=== PATIENT | female | born 1950 | race Caucasian/White ===

== ENCOUNTER 2019-10-09 14:43 | Emergency (ER) | payer OTHER ==
[~2019-10-09] VITALS: Ht 154.9 cm; Wt 67.1 kg
--- NOTE | 2019-10-09 14:46 | NUR ---
BIB EMS to ER, C/O R FOOT PAIN AND LOWER ABDOMINAL PAIN, URINARY FREQUENCY. PATIENT ABLE TO WALK WITH ASSIST, HAS FRACTURE ON L FOOT , TO ER BED 11, HOOKED TO MONITOR, CHANGED TO HOSP GOWN, WARM BLANKET PROVIDED, PATIENT AAO x 4, BREATHING EVEN AND UNLABORED, AWAITING MD ESCALANTE.
--- NOTE | 2019-10-09 15:09 | NUR ---
DR PARHAM AT BEDSIDE
[2019-10-09] MEDS ORDERED: KETOROLAC TROMETHAMINE INJ 30 MG/ML VIAL ONE (15:18)
[2019-10-09] MEDS ORDERED: KETOROLAC TROMETHAMINE INJ 30 MG/ML VIAL IV ONE (15:30)
[2019-10-09] MEDS ORDERED: IV NS 0.9% 1,000 ML BAG IV ONE (15:30)
--- NOTE | 2019-10-09 15:35 | NUR ---
URINE SAMPLE COLLECTED SENT TO LAB
[2019-10-09 15:52] LABS: BASOPHILS # (AUTO) 0.1 /CMM (0.0-0.2); BASOPHILS % (AUTO) 0.6 % (0.0-2.0); HEMATOCRIT 40 % (33-45); HEMOGLOBIN 13.2 g/dL (11.5-14.8); LYMPHOCYTES # (AUTO) 2.2 /CMM (0.8-4.8); LYMPHOCYTES % (AUTO) 17.7 % (20.0-44.0); MEAN CORPUSCULAR HGB CONC 33 g/dl (31.0-36.0); MEAN CORPUSCULAR VOLUME 94 fL (82-100); MONOCYTES # (AUTO) 1.1 /CMM (0.1-1.30); MONOCYTES % (AUTO) 8.5 % (2.0-12.0); NEUTROPHILS % (AUTO) 72.2 % (43.0-81.0); PLATELET COUNT (AUTO) 333 /CMM (150-450); RED BLOOD CELL COUNT(AUTO) 4.27 MIL/uL (4.0-5.2); WHITE BLOOD COUNT (AUTO) 12.5 K/uL (4.3-11.0)
[2019-10-09 16:01] LABS: APPEARANCE,URINE Clear (CLEAR); BILIRUBIN,URINE Negative (NEGATIVE); BLOOD, URINE Trace-lysed Ery/uL (NEGATIVE); COLOR,URINE Yellow (YELLOW); KETONES,URINE Negative (NEGATIVE); LEUKOCYTE ESTERASE ,URINE Negative (NEGATIVE); NITRITE, URINE Negative (NEGATIVE); PH,URINE 7.5 (5.0-8.0); PROTEIN,URINE Negative (NEGATIVE); UGLUCOSE Negative (NEGATIVE); UROBILINOGEN,URINE 0.2 EU/dL (0.2)
[2019-10-09 16:20] LABS: BACTERIA,URINE Few /HPF (None Seen); SQUAMOUS EPITHELIAL CELL,UR Few /HPF (None Seen); WBC,URINE 0-2 /HPF (0-3)
[2019-10-09 16:28] LABS: CREATININE 0.6 mg/dL (0.6-1.3); POTASSIUM 4.3 mmol/L (3.5-5.1)
[2019-10-09 16:34] LABS: ALBUMIN 3.5 g/dL (3.4-5.0); BILIRUBIN,DIRECT 0.1 mg/dL (0.0-0.2); BILIRUBIN,TOTAL 0.4 mg/dL (0.2-1.0); TOTAL PROTEIN, SERUM 7.5 g/dL (6.4-8.2)
--- NOTE | 2019-10-09 17:37 | NUR ---
PATIENT C/O 10/10 PS AT R FLANK AREA, MADE MD AWARE.
[2019-10-09] MEDS ORDERED: MORPHINE SULFATE INJ 4 MG/ML DISP.SYRIN ONE ×2 (17:40→20:37)
--- NOTE | 2019-10-09 17:48 | NUR ---
GIFTY ECHOLS AT BEDSIDE FOR APPLICATION OF KATHRINE WRAP AT L FOOT.
[2019-10-09] MEDS ORDERED: MORPHINE SULFATE INJ 2 MG/ML DISP.SYRIN IV ONE ×2 (18:00→21:00)
--- NOTE | 2019-10-09 18:13 | NUR ---
[facility] ETA 2000
--- NOTE | 2019-10-09 19:08 | NUR ---
PATIENT IN BED AWAKE. HOOKED TO MONITOR, VSS. WILL CONTINUE TO MONITOR ACCORDINGLY.
--- NOTE | 2019-10-09 20:42 | NUR ---
[facility] IN FACILITY; PT ON [facility], NO ACUTE EVENTS, NOT IN ANY DISTRESS, -SOB. -CP. MEDS GIVEN.
[2019-10-09 21:07] VITALS: BP 134/71
== END 2019-10-09 21:07 | disposition home or self-care (01) ==
LOC: ER 14:48
DX: N13.2 Hydronephrosis with renal and ureteral calculous obstruction (principal)
CPT/HCPCS: 36415; 74176; 80048; 80076; 81001; 83690; 85025; 87086; 96361; 96374; 96375; 96376; 99285; J1885; J2270 ×2; 81000-TC

== ENCOUNTER 2020-04-20 11:20 | Emergency (ER) | payer OTHER ==
[~2020-04-20] VITALS: Ht 154.9 cm; Wt 79.8 kg
--- NOTE | 2020-04-20 11:30 | NUR ---
[id number] MECHANICAL FALL FROM STAIRS -KO, C/O PAIN ON BACK OF HEAD & BUTTOCK. -NECK/BACK. PT AAOX4, VSS. RR EVEN & UNLABORED. DENIES CP, SOB, DIZZINESS, N/V AT THIS TIME. AWAITING EVAL BY DARRION. WILL CONT TO MONITOR.
[2020-04-20] MEDS ORDERED: IBUPROFEN 600 MG TABLET ONE (12:10)
[2020-04-20] MEDS: IBUPROFEN 600 MG TABLET PO ONE (12:14)
[2020-04-20 13:39] VITALS: BP 118/70
--- NOTE | 2020-04-20 13:39 | NUR ---
Patient discharged to home in stable condition. Written and verbal after care instructions given. Patient verbalizes understanding of instruction.
== END 2020-04-20 13:40 | disposition home or self-care (01) ==
LOC: ER 11:27
DX: S30.0XXA Contusion of lower back and pelvis, initial encounter (principal); S00.83XA Contusion of other part of head, initial encounter; F31.9 Bipolar disorder, unspecified; F20.9 Schizophrenia, unspecified; W01.0XXA Fall on same level from slipping, tripping and stumbling without subsequent striking against object, initial encounter; Y93.89 Activity, other specified; Y92.89 Other specified places as the place of occurrence of the external cause; Y99.8 Other external cause status
CPT/HCPCS: 70450-TC; 72192-TC

== ENCOUNTER 2020-06-05 17:57 | Emergency (ER) | payer OTHER ==
[~2020-06-05] VITALS: Ht 154.9 cm; Wt 84.4 kg
[2020-06-05] MEDS ORDERED: HYDROMORPHONE INJ 2 MG/ML DISP.SYRIN IV ONE ×2 (18:30→20:00)
[2020-06-05] MEDS ORDERED: IV NS 0.9% 1,000 ML BAG IV ONE (18:30)
[2020-06-05] MEDS ORDERED: KETOROLAC TROMETHAMINE INJ 30 MG/ML VIAL IV ONE (18:30)
[2020-06-05] MEDS ORDERED: ONDANSETRON HCL/PF 4 MG/2 ML VIAL IVP ONE (18:30)
[2020-06-05] MEDS ORDERED: KETOROLAC TROMETHAMINE 15 MG/ML VIAL ONE (18:47)
[2020-06-05] MEDS ORDERED: ONDANSETRON HCL/PF 4 MG/2 ML VIAL ONE (18:47)
[2020-06-05] MEDS ORDERED: HYDROMORPHONE 1 MG/1 ML DISP.SYRIN ONE ×2 (18:48→19:39)
[2020-06-05 18:59] LABS: BASOPHILS # (AUTO) 0.1 /CMM (0.0-0.2); BASOPHILS % (AUTO) 1.2 % (0.0-2.0); EOSINOPHILS % (AUTO) 7.4 % (0.0-6.0); HEMATOCRIT 37 % (33-45); HEMOGLOBIN 12.1 g/dL (11.5-14.8); LYMPHOCYTES % (AUTO) 23.1 % (20.0-44.0); MEAN CORPUSCULAR HGB CONC 33 g/dl (31.0-36.0); MEAN CORPUSCULAR VOLUME 95 fL (82-100); MONOCYTES # (AUTO) 1.2 /CMM (0.1-1.30); MONOCYTES % (AUTO) 14.6 % (2.0-12.0); NEUTROPHILS # (AUTO) 4.6 /CMM (1.8-8.9); NEUTROPHILS % (AUTO) 53.7 % (43.0-81.0); PLATELET COUNT (AUTO) 357 /CMM (150-450); RED BLOOD CELL COUNT(AUTO) 3.87 MIL/uL (4.0-5.2); WHITE BLOOD COUNT (AUTO) 8.5 K/uL (4.3-11.0)
[2020-06-05 19:14] LABS: CALCIUM, SERUM 9.6 mg/dL (8.5-10.1); CREATININE 0.6 mg/dL (0.6-1.3); POTASSIUM 4.3 mmol/L (3.5-5.1)
--- NOTE | 2020-06-05 19:15 | NUR ---
Patient awake alert yelling medication Given asking for Bedfan keep patient clean and dry ,per patient wants more meds explained to patient will ask Md for meds .
[2020-06-05 19:19] LABS: ALBUMIN 3.4 g/dL (3.4-5.0); BILIRUBIN,DIRECT 0.1 mg/dL (0.0-0.2); BILIRUBIN,TOTAL 0.3 mg/dL (0.2-1.0); TOTAL PROTEIN, SERUM 7.1 g/dL (6.4-8.2)
--- NOTE | 2020-06-05 19:43 | NUR ---
PT MEDICATED, BROUGHT TO CT. PLACED ON 2L NC.
[2020-06-05 21:03] LABS: BILIRUBIN,URINE NEGATIVE (NEGATIVE); LEUKOCYTE ESTERASE ,URINE NEGATIVE (NEGATIVE); NITRITE, URINE POSITIVE (NEGATIVE); PROTEIN,URINE TRACE mg/dl (NEGATIVE); UGLUCOSE 100 MG/DL mg/dL (NEGATIVE)
[2020-06-05 21:11] LABS: COLOR,URINE ORANGE (YELLOW)
[2020-06-05 21:28] LABS: BACTERIA,URINE None seen /HPF (None Seen); RBC,URINE 0-2 /HPF (0-2); SQUAMOUS EPITHELIAL CELL,UR 0-2 /HPF (None Seen); WBC,URINE 0-2 /HPF (0-3)
--- NOTE | 2020-06-05 22:16 | NUR ---
IV removed. Catheter intact and site benign. Pressure and 4x4 applied to site. No bleeding noted.
--- NOTE | 2020-06-05 22:16 | NUR ---
Patient discharged to home in stable condition. Written and verbal after care instructions given. Patient verbalizes understanding of instruction. Pt told to follow up with urologist. vss. Pt called jeff.
--- NOTE | 2020-06-05 22:16 | NUR ---
PT PROVIDED WITH LEG BAG.
[2020-06-05 22:29] VITALS: BP 143/76
== END 2020-06-05 23:00 | disposition home or self-care (01) ==
LOC: ER 18:01
DX: N20.0 Calculus of kidney (principal); R10.2 Pelvic and perineal pain; R33.9 Retention of urine, unspecified; K57.30 Diverticulosis of large intestine without perforation or abscess without bleeding; K76.89 Other specified diseases of liver; R74.01 Elevation of levels of liver transaminase levels; K59.00 Constipation, unspecified; M48.00 Spinal stenosis, site unspecified; F31.9 Bipolar disorder, unspecified; F20.9 Schizophrenia, unspecified
CPT/HCPCS: 36415; 51702; 74176; 76770; 80048; 80076; 81001; 85025; 96361; 96374; 96375; 96376; 99285; J1170 ×2; J1885; J2405; J7030

== ENCOUNTER 2020-07-03 02:57 | Emergency (ER) | payer OTHER ==
[~2020-07-03] VITALS: Ht 154.9 cm; Wt 84.4 kg
--- NOTE | 2020-07-03 03:00 | NUR ---
pt bibra c/o rt flank pain x3days. Pt aaox4 breathing evenly and unlabored. Pt attached to monitor and pox. Pt skin, warm, dry, and intact. Md at bedside for eval. [place] and call light within reach.
--- NOTE | 2020-07-03 03:45 | NUR ---
lab at bedside
[2020-07-03 05:14] LABS: BILIRUBIN,URINE NEGATIVE (NEGATIVE); COLOR,URINE YELLOW (YELLOW); LEUKOCYTE ESTERASE ,URINE NEGATIVE (NEGATIVE); NITRITE, URINE NEGATIVE (NEGATIVE); PH,URINE 7.5 (5.0-8.0); PROTEIN,URINE NEGATIVE (NEGATIVE); UGLUCOSE NEGATIVE (NEGATIVE); UROBILINOGEN,URINE 0.2 EU/dL (0.2)
--- NOTE | 2020-07-03 06:52 | NUR ---
Patient discharged to home in stable condition. Written and verbal after care instructions given. Patient verbalizes understanding of instruction. Pt ambulatory with a steady gait
[2020-07-03 07:00] VITALS: BP 144/85
== END 2020-07-03 06:52 | disposition home or self-care (01) ==
LOC: ER 02:59
DX: R33.9 Retention of urine, unspecified (principal); F20.9 Schizophrenia, unspecified; F31.9 Bipolar disorder, unspecified

== ENCOUNTER 2020-07-03 20:25 | Emergency (ER) | payer OTHER ==
[~2020-07-03] VITALS: Ht 154.9 cm; Wt 68.9 kg
--- NOTE | 2020-07-03 20:55 | NUR ---
F/C WAS FLUSHED AND DRAINED 1200 ML OF CLEAR, YELLOW URINE
--- NOTE | 2020-07-03 21:02 | NUR ---
DR HARE AT BED SIDE
[2020-07-03 21:14] VITALS: BP 141/89
--- NOTE | 2020-07-03 21:14 | NUR ---
Patient discharged to home in stable condition. Written and verbal after care instructions given. Patient verbalizes understanding of instruction.Pt ambulatory with a steady gait
== END 2020-07-03 21:14 | disposition home or self-care (01) ==
LOC: ER 20:30
DX: T83.9XXA Unspecified complication of genitourinary prosthetic device, implant and graft, initial encounter (principal); K64.9 Unspecified hemorrhoids; F20.9 Schizophrenia, unspecified; F31.9 Bipolar disorder, unspecified; Z60.2 Problems related to living alone

== ENCOUNTER 2020-08-31 09:16 | Emergency (ER) | payer OTHER, MEDICAID ==
[~2020-08-31] VITALS: Ht 154.9 cm; Wt 70.3 kg
--- NOTE | 2020-08-31 10:01 | NUR ---
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 PAIN RATE 10/10. CONNECTED TO MONITOR WILL CONTINUE TO MONITOR.
[2020-08-31 10:07] LABS: BASOPHILS # (AUTO) 0.1 K/uL (0.0-0.2); BASOPHILS % (AUTO) 0.7 % (0.0-2.0); EOSINOPHILS % (AUTO) 0.5 % (0.0-6.0); HEMATOCRIT 32 % (33-45); HEMOGLOBIN 10.4 g/dL (11.5-14.8); LYMPHOCYTES # (AUTO) 1.2 K/uL (0.8-4.8); LYMPHOCYTES % (AUTO) 13.3 % (20.0-44.0); MEAN CORPUSCULAR HGB CONC 32 g/dl (31.0-36.0); MEAN CORPUSCULAR VOLUME 90 fL (82-100); MONOCYTES # (AUTO) 0.7 K/uL (0.1-1.30); MONOCYTES % (AUTO) 7.6 % (2.0-12.0); NEUTROPHILS # (AUTO) 6.9 K/uL (1.8-8.9); NEUTROPHILS % (AUTO) 77.9 % (43.0-81.0); PLATELET COUNT (AUTO) 234 K/uL (150-450); RED BLOOD CELL COUNT(AUTO) 3.57 MIL/uL (4.0-5.2); WHITE BLOOD COUNT (AUTO) 8.9 K/uL (4.3-11.0)
[2020-08-31 10:14] LABS: CALCIUM, SERUM 8.8 mg/dL (8.5-10.1); CREATININE 0.5 mg/dL (0.6-1.3); POTASSIUM 3.5 mmol/L (3.5-5.1)
[2020-08-31 10:20] LABS: ALBUMIN 2.8 g/dL (3.4-5.0); BILIRUBIN,DIRECT 0.1 mg/dL (0.0-0.2); BILIRUBIN,TOTAL 0.3 mg/dL (0.2-1.0); TOTAL PROTEIN, SERUM 7.2 g/dL (6.4-8.2)
[2020-08-31] MEDS ORDERED: MORPHINE SULFATE INJ 4 MG/ML DISP.SYRIN ONE (10:27)
[2020-08-31] MEDS ORDERED: MORPHINE SULFATE INJ 2 MG/ML DISP.SYRIN ONE (10:27)
[2020-08-31] MEDS ORDERED: MORPHINE SULFATE INJ 2 MG/ML DISP.SYRIN IV ONE (10:30)
--- NOTE | 2020-08-31 10:30 | NUR ---
PATIENT TAKEN TO CT
[2020-08-31] MEDS ORDERED: PREG200C59 PO (11:01)
[2020-08-31] MEDS ORDERED: GABA600T12 PO (11:01)
[2020-08-31] MEDS ORDERED: BETH50TA2 PO (11:01)
[2020-08-31] MEDS ORDERED: MORP15TA7 PO (11:01)
[2020-08-31] MEDS ORDERED: ENOX80DI9 SQ (11:01)
--- NOTE | 2020-08-31 11:18 | NUR ---
URINE COLLECTED AND SENT TO THE LAB
[2020-08-31 11:38] LABS: BILIRUBIN,URINE Negative (NEGATIVE); COLOR,URINE YELLOW (YELLOW); LEUKOCYTE ESTERASE ,URINE Negative (NEGATIVE); NITRITE, URINE Negative (NEGATIVE); PH,URINE 7.5 (5.0-8.0); PROTEIN,URINE Negative (NEGATIVE); UGLUCOSE Negative (NEGATIVE); UROBILINOGEN,URINE 0.2 EU/dL (0.2)
--- NOTE | 2020-08-31 12:00 | NUR ---
PT EYES CLOSED, EASILY AWAKEN BY VERBAL STIMULI. RR EVEN & UNLABORED. DENIES CP, SOB, DIZZINESS, N/V AT THIS TIME. WILL CONT TO MONITOR.
--- NOTE | 2020-08-31 13:00 | NUR ---
ISELA EVANS CALLED FROM [employer]. SHE WILL SET UP PEER TO PEER FOR TRANSFER.
--- NOTE | 2020-08-31 13:04 | NUR ---
NURSING SUP GAVE M/S BED 310-1.
[2020-08-31] MEDS ORDERED: MELA1TAB27 PO (13:14)
--- NOTE | 2020-08-31 13:30 | NUR ---
ISELA EVANS CALLED FROM [employer]. PT HAS BEEN ACCEPTED TO [facility] UNDER DR. BOYD. WILL CALL US BACK FOR TRANSFER INFO.
--- NOTE | 2020-08-31 14:11 | NUR ---
ISELA EVANS CALLED FROM [facility]. PER NATHAN, DR. BOYD REVIEWED CLINICALS AND PATIENT WILL NEED NEURO SURGERY. PT WAS REFERRED TO [facility] FOR TRANSFER. AWAITING ACCEPTANCE INFO AND TRANSFER INFO.
--- NOTE | 2020-08-31 14:55 | NUR ---
PT C/O LEG PAIN, DR. CROOKS AWARE.
--- NOTE | 2020-08-31 15:30 | NUR ---
ISELA EVANS CALLED FROM [id number]. PT HAS BEEN ACCEPTED UNDER THE CARE OF DR. RAMIREZ AT [facility]. CURRENTLY DR. RAMIREZ LOOKING FOR NEURO SURGEON TO ACCEPT AT [facility] TO ACCEPT PATIENT. AWAITING CALL BACK FOR TRANSFER INFO.
[2020-08-31] MEDS ORDERED: HYDROMORPHONE 1 MG/1 ML DISP.SYRIN ONE (16:37)
--- NOTE | 2020-08-31 16:46 | NUR ---
PT C/O LEG PAIN, MEDICATED PER ERMD ORDER. PT MAYRA WELL.
[2020-08-31] MEDS ORDERED: IV NS 0.9% 1,000 ML IV ONE (17:00)
[2020-08-31] MEDS ORDERED: Medication Not On Formulary EA (Gabapentin 600 MG) PO SCH (17:00)
[2020-08-31] MEDS ORDERED: PREGABALIN 200 MG PO SCH (17:00)
[2020-08-31] MEDS ORDERED: HYDROMORPHONE 1 MG/1 ML DISP.SYRIN IV ONE (17:00)
[2020-08-31] MEDS ORDERED: Medication Not On Formulary EA (Melatonin/Pyridoxine HCl (B6) (Melatonin 3 mg Tablet) 1 PO SCH (18:00)
--- NOTE | 2020-08-31 18:45 | NUR ---
TRANSFER INFO PT ACCEPTED TO [facility] UNDER THE CARE OF DR. RAMIREZ. PT WILL BE GOING TO ROOM 6120. NUMBER FOR REPORT [phone].
--- NOTE | 2020-08-31 18:56 | NUR ---
AMBULANCE INFO CALLED [facility] FOR TRANSPORT TO [facility]. ETA 75-90 MINUTES. AMBULANCE AUTH #[id number]. FROM INSURANCE.
--- NOTE | 2020-08-31 18:59 | NUR ---
[facility] PHONE NUMBERS DAY: [phone]. AFTER HOURS: [phone]
[2020-08-31] MEDS ORDERED: GABAPENTIN 300 MG CAPSULE ONE (19:35)
[2020-08-31] MEDS ORDERED: GABAPENTIN 100 MG CAPSULE PO ONE (20:00)
[2020-08-31 20:13] VITALS: BP 106/56
--- NOTE | 2020-08-31 20:30 | NUR ---
REPORT GIVEN TO [place] DRAPER AT [facility] FOR COLE. PT ENROUTE TO [facility]IA [facility]
[2020-08-31] MEDS ORDERED: ENOXAPARIN SODIUM 80 MG/0.8 ML DISP.SYRIN SQ SCH (21:00)
== END 2020-08-31 20:32 | disposition short-term general hospital (02) ==
LOC: ER 09:20
DX: M54.16 Radiculopathy, lumbar region (principal); Z98.1 Arthrodesis status; M48.061 Spinal stenosis, lumbar region without neurogenic claudication; M25.78 Osteophyte, vertebrae; Z20.822 Contact with and (suspected) exposure to COVID-19; D64.9 Anemia, unspecified; E66.9 Obesity, unspecified; Z68.29 Body mass index [BMI] 29.0-29.9, adult; F20.9 Schizophrenia, unspecified; F31.9 Bipolar disorder, unspecified; G62.9 Polyneuropathy, unspecified; Z79.899 Other long term (current) drug therapy; R26.2 Difficulty in walking, not elsewhere classified
CPT/HCPCS: 36415; 51702; 70450; 71045; 72125; 72131; 80048; 80076; 81003; 82962; 83690; 85025; 85730; 87081; 87426; 93005; 96361; 96374; 96375; 99285; C9803; J1170; J2270 ×2; J7030

== ENCOUNTER 2020-10-14 19:56 | Emergency (ER) | payer OTHER ==
[~2020-10-14] VITALS: Ht 154.9 cm; Wt 70.3 kg
[~2020-10-14 19:56] MED LIST: ENOX80DI9 SQ; GABA600T12 PO; MELA1TAB27 PO; MORP15TA7 PO; PREG200C59 PO
--- NOTE | 2020-10-14 20:15 | NUR ---
PT BIBS WITH C/O RECTAL PAIN D/T HEMORRHOIDS. PT ALERT AND ORIENTED X3. PT AMBULATORY WITH NON LABORED BREATHING.
--- NOTE | 2020-10-14 20:25 | NUR ---
Karley berg in [facility] - 10/14/20 at 2049 by JEANINE INFORMATION TECHNOLOGY TEACHER AT BEDSIDE.
[2020-10-14] MEDS ORDERED: PREG200C PO (20:46)
--- NOTE | 2020-10-14 20:55 | NUR ---
Patient discharged to home in stable condition. Written and verbal after care instructions given. Patient verbalizes understanding of instruction. RX given
[2020-10-14 20:56] VITALS: BP 140/70
== END 2020-10-14 20:57 | disposition home or self-care (01) ==
LOC: ER 19:56
DX: K62.3 Rectal prolapse (principal); G89.29 Other chronic pain; F31.9 Bipolar disorder, unspecified; F20.9 Schizophrenia, unspecified; E66.9 Obesity, unspecified; Z68.29 Body mass index [BMI] 29.0-29.9, adult; Z60.2 Problems related to living alone; Z79.899 Other long term (current) drug therapy

== ENCOUNTER 2020-11-22 20:43 | Emergency (ER) | payer OTHER ==
[~2020-11-22] VITALS: Ht 154.9 cm; Wt 72.6 kg
[~2020-11-22 20:43] MED LIST changes: +PREG200C PO
[2020-11-22 21:36] VITALS: BP 114/68
== END 2020-11-22 22:57 | disposition home or self-care (01) ==
LOC: ER 20:52
DX: Z01.818 Encounter for other preprocedural examination (principal); F31.9 Bipolar disorder, unspecified; F20.9 Schizophrenia, unspecified; Z60.2 Problems related to living alone; Z79.899 Other long term (current) drug therapy

== ENCOUNTER 2021-01-22 02:28 | Emergency (ER) | payer OTHER ==
[~2021-01-22] VITALS: Ht 154.9 cm; Wt 74.8 kg
--- NOTE | 2021-01-22 02:39 | NUR ---
BIBRA 860 FROM HOME C/O COCCYX AND R RIB PAIN S/P GLF. -LOC. PLACED IN BED 3 ON MONITOR AND PULSE OX. AWAITING ER MD FOR EVAL AND ORDERS.
[2021-01-22] MEDS ORDERED: HYDROMORPHONE 1 MG/1 ML DISP.SYRIN ONE ×2 (04:28→06:24)
[2021-01-22] MEDS ORDERED: HYDROMORPHONE 1 MG/1 ML DISP.SYRIN IV ONE (04:30)
--- NOTE | 2021-01-22 04:30 | NUR ---
0.5 MG DILAUDID ADMINISTERED IM PER MD ORDER
--- NOTE | 2021-01-22 04:37 | NUR ---
PT SLEEPING COMFORTABLY BREATHING EVEN AND UNLABORED
[2021-01-22] MEDS ORDERED: HYDROMORPHONE 1 MG/1 ML DISP.SYRIN IM ONE (06:00)
--- NOTE | 2021-01-22 06:35 | NUR ---
Patient discharged to home in stable condition. Written and verbal after care instructions given. Patient verbalizes understanding of instruction.
--- NOTE | 2021-01-22 08:27 | NUR ---
PER PT HER FRIEND WILL BE HER IN 3 HRS TO PICK HER UP.
--- NOTE | 2021-01-22 12:28 | NUR ---
PT IS CLEANED AND CHANGED. AWAITING FRIEND FOR PHARMACY TECHNOLOGY INSTRUCTOR.
[2021-01-22 12:29] VITALS: BP 120/71
--- NOTE | 2021-01-22 13:08 | NUR ---
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 states he needs 1 more hour.
--- NOTE | 2021-01-22 14:00 | NUR ---
PT FRIEND DUARTE AT BEDSIDE FOR PT BULLET LUBRICATING MACHINE OPERATOR.
--- NOTE | 2021-01-22 14:08 | NUR ---
Patient discharged to home in stable condition. Written and verbal after care instructions given. Patient verbalizes understanding of instruction.
== END 2021-01-22 14:08 | disposition home or self-care (01) ==
LOC: ER 02:32
DX: G89.29 Other chronic pain (principal); G62.9 Polyneuropathy, unspecified; F20.9 Schizophrenia, unspecified; Z60.2 Problems related to living alone; Z79.899 Other long term (current) drug therapy
CPT/HCPCS: 72220; 96372 ×2; 99285; J1170 ×2

== ENCOUNTER 2021-03-07 08:27 | Inpatient (IN) | payer BC, OTHER ==
[~2021-03-07] VITALS: Ht 154.9 cm; Wt 71.8 kg
[2021-03-07] MEDS ORDERED: MORPHINE SULFATE INJ 4 MG/ML DISP.SYRIN ONE ×2 (09:42→12:38)
[2021-03-07] MEDS ORDERED: MORPHINE SULFATE INJ 2 MG/ML DISP.SYRIN IV ONE (10:00)
[2021-03-07] MEDS ORDERED: IV NS 0.9% 1,000 ML IV ONE (10:00)
--- NOTE | 2021-03-07 10:39 | NUR ---
COVID ANTIGEN SWAB DONE AND SENT TO THE LAB
--- NOTE | 2021-03-07 10:40 | NUR ---
URINE COLLECTED AT SENT
--- NOTE | 2021-03-07 10:41 | NUR ---
X RAY AT BEDSIDE
[2021-03-07] MEDS ORDERED: Z GUARD REMEDY 4 OZ OINT TP PRN (12:30)
[2021-03-07] MEDS ORDERED: MORPHINE SULFATE SR 15 MG TABLET.SA PO PRN (12:30)
[2021-03-07] MEDS ORDERED: IV NS 0.9% 1,000 ML IV PRN (12:30)
[2021-03-07] MEDS ORDERED: ONDANSETRON HCL/PF 4 MG/2 ML VIAL IVP PRN (12:30)
[2021-03-07] MEDS ORDERED: hydrALAZINE HCL IV 20 MG VIAL IV PRN (12:30)
[2021-03-07] MEDS ORDERED: ACETAMINOPHEN 325 MG TABLET PO PRN (12:30)
[2021-03-07 12:34] LABS: BILIRUBIN,URINE NEGATIVE (NEGATIVE); LEUKOCYTE ESTERASE ,URINE LARGE (NEGATIVE); NITRITE, URINE POSITIVE (NEGATIVE); PROTEIN,URINE NEGATIVE (NEGATIVE); UGLUCOSE NEGATIVE (NEGATIVE); UROBILINOGEN,URINE 0.2 EU/dL (0.2)
[2021-03-07 12:36] LABS: COLOR,URINE STRAW (YELLOW)
[2021-03-07] MEDS ORDERED: AMIT10TA6 PO (12:36)
[2021-03-07] MEDS ORDERED: TIZA-180 PO (12:36)
[2021-03-07] MEDS ORDERED: BETH50TA2 PO (12:38)
--- NOTE | 2021-03-07 12:48 | NUR ---
ROOM 308-2
[2021-03-07 12:57] LABS: BASOPHILS # (AUTO) 0.1 K/uL (0.0-0.2); BASOPHILS % (AUTO) 0.7 % (0.0-2.0); EOSINOPHILS % (AUTO) 2.9 % (0.0-6.0); HEMATOCRIT 33 % (33-45); HEMOGLOBIN 10.8 g/dL (11.5-14.8); LYMPHOCYTES # (AUTO) 1.7 K/uL (0.8-4.8); LYMPHOCYTES % (AUTO) 23.4 % (20.0-44.0); MEAN CORPUSCULAR HGB CONC 33 g/dl (31.0-36.0); MEAN CORPUSCULAR VOLUME 90 fL (82-100); MONOCYTES # (AUTO) 0.5 K/uL (0.1-1.30); MONOCYTES % (AUTO) 7.1 % (2.0-12.0); NEUTROPHILS # (AUTO) 4.9 K/uL (1.8-8.9); NEUTROPHILS % (AUTO) 65.9 % (43.0-81.0); PLATELET COUNT (AUTO) 375 K/uL (150-450); RED BLOOD CELL COUNT(AUTO) 3.67 MIL/uL (4.0-5.2); WHITE BLOOD COUNT (AUTO) 7.4 K/uL (4.3-11.0)
[2021-03-07] MEDS: PREGABALIN 100 MG CAPSULE PO SCH ×2 (13:00→13:43)
[2021-03-07] MEDS ORDERED: MORPHINE SULFATE INJ 10 MG/ML DISP.SYRIN IV ONE (13:00)
--- NOTE | 2021-03-07 13:12 | NUR ---
report given to jesse for liudmila.
[2021-03-07 13:14] LABS: CALCIUM, SERUM 8.5 mg/dL (8.5-10.1); CREATININE 0.5 mg/dL (0.6-1.3); POTASSIUM 3.4 mmol/L (3.5-5.1)
[2021-03-07 13:15] VITALS: BP 127/63
--- NOTE | 2021-03-07 13:15 | NUR ---
MS GATE OPERATOR NOTES RECEIVED PATIENT ENDORSED BY ER NURSE LUIS F. PATIENT IS AWAKE AND A/O X4. ON ROOM AIR TOLERATING WELL. NO SOB NOTED. NOT IN DISTRESS. WITH NO COMPLAINTS OF PAIN OR DISCOMFORT AT THIS TIME. WITH IV ACCESS AT RIGHT UPPER ARM G20, PATENT AND INTACT. SKIN ASSESSMENT DONE. PHOTO TAKEN. MADE COMFORTABLE ON BED. SAFETY MEASURES IN PLACED. CALL LIGHT WITHIN REACH. BED ON LOWEST LOCKED POSITION, SIDE RAILS UP X2. WILL CONTINUE TO MONITOR.
[2021-03-07] MEDS: NITROFURANTOIN/MONOHYDRATE MACROCRYSTALS 100 MG CAPSULE PO SCH ×2 (13:43→16:20)
[2021-03-07 14:09] LABS: BACTERIA,URINE Many /HPF (None Seen); RBC,URINE 0-3 /HPF (0-2); SQUAMOUS EPITHELIAL CELL,UR Moderate /HPF (None Seen)
[2021-03-07] MEDS: MORPHINE SULFATE INJ 2 MG/ML DISP.SYRIN IV PRN (16:23)
[2021-03-07] MEDS ORDERED: CEFTRIAXONE 1 G in IV D5W 50 ML IV ONE (17:00)
[2021-03-07] MEDS: GABAPENTIN 300 MG CAPSULE PO SCH (17:08)
[2021-03-07] MEDS: ENOXAPARIN SODIUM 40 MG/0.4 ML DISP.SYRIN SQ SCH (17:09)
[2021-03-07] MEDS ORDERED: PYRIDOXINE HCL 50 MG TABLET PO SCH (18:00)
--- NOTE | 2021-03-07 18:37 | NUR ---
MS RN CLOSING NOTES PATIENT RESTING ON BED AND A/O X4. ON ROOM AIR TOLERATING WELL. NO SOB NOTED. NOT IN DISTRESS. WITH NO COMPLAINTS OF PAIN AT THIS TIME. WITH IV ACCESS AT RIGHT UPPER ARM G20 WITH IVF NS AT 75ML/HR INFUSING WELL. DUE MEDS GIVEN. PATIENT REFUSED CT ON LUMBAR SPINE. WILL FOLLOW-UP TOMORROW. SAFETY MEASURES IN PLACED. CALL LIGHT WITHIN REACH. BED ON LOWEST LOCKED POSITION, SIDE RAILS UP X2. WILL ENDORSE TO NEXT SHIFT FOR COLE.
[2021-03-07 20:00] VITALS: BP 136/77
[2021-03-07] MEDS ORDERED: NITROFURANTOIN/MONOHYDRATE MACROCRYSTALS 100 MG CAPSULE PO SCH (21:00)
[2021-03-07] MEDS: MORPHINE SULFATE SR 15 MG TABLET.SA PO SCH (21:03)
--- NOTE | 2021-03-07 21:11 | NUR ---
MS RN NOTES: PATIENT RESTLESS, IRRITATED, COMPLAINING OF GENERALIZED PAIN. MORPHINE 15MG 1TAB GIVEN PO. WILL CONTINUE TO MONITOR.
[2021-03-08] MEDS: MORPHINE SULFATE INJ 2 MG/ML DISP.SYRIN IV PRN ×2 (01:54→06:15)
--- NOTE | 2021-03-08 02:00 | NUR ---
MS RN NOTES: PATIENT DEMANDED HER IV 0.9% NS 1000ML @ 75ML/HR BE STOPPED. PATIENT WAS YELLING "I WANT IT STOPPED, I DON'T WANT IT ANYMORE". REFUSING REDIRECTION.
--- NOTE | 2021-03-08 02:10 | NUR ---
MS RN NOTES: PATIENT YELLING, CRYING, IRRITATED, COMPLAINING OF BLE PAIN. MORPHINE SULFATE 1ML ADMINISTERED VIA IV AT 0154. PATIENT CURRENTLY CALM. WILL CONTINUE TO MONITOR.
--- NOTE | 2021-03-08 05:27 | NUR ---
MS RN NOTES: MRSA BOTH NARES SWABBED AND PUT IN REFRIGERATOR FOR LAB PICK. LAB CALLED/AWARE.
--- NOTE | 2021-03-08 06:19 | NUR ---
MS RN NOTES: PATIENT YELLING, CRYING, RESTLESS, REFUSING REDIRECTION. COMPLAINING OF SEVERE PAIN. MORPHINE IV 2MG ADMINISTERED AT 0615. WILL CONTINUE TO MONITOR.
--- NOTE | 2021-03-08 06:52 | NUR ---
MS RN CLOSING NOTES: PATIENT SLEEPING INTERMITTENTLY. PATIENT REPOSITIONED. NO C/O PAIN AT THIS TIME. NO S/S OF DISTRESS. RESPIRATION EVEN AND UNLABORED WITH EQUAL RISE AND FALL OF THE CHEST. ALL PATIENT CARE NEEDS HAVE BEEN MET AT THIS TIME. WILL CONTINUE TO MONITOR AND ENDORSE TO AM SHIFT.
[2021-03-08 06:55] LABS: BASOPHILS # (AUTO) 0.1 K/uL (0.0-0.2); BASOPHILS % (AUTO) 0.8 % (0.0-2.0); EOSINOPHILS % (AUTO) 4.2 % (0.0-6.0); HEMATOCRIT 33 % (33-45); HEMOGLOBIN 11.2 g/dL (11.5-14.8); LYMPHOCYTES % (AUTO) 26.9 % (20.0-44.0); MEAN CORPUSCULAR HGB CONC 34 g/dl (31.0-36.0); MEAN CORPUSCULAR VOLUME 90 fL (82-100); MONOCYTES # (AUTO) 0.8 K/uL (0.1-1.30); NEUTROPHILS # (AUTO) 4.3 K/uL (1.8-8.9); NEUTROPHILS % (AUTO) 57.1 % (43.0-81.0); PLATELET COUNT (AUTO) 393 K/uL (150-450); RED BLOOD CELL COUNT(AUTO) 3.64 MIL/uL (4.0-5.2); WHITE BLOOD COUNT (AUTO) 7.5 K/uL (4.3-11.0)
--- NOTE | 2021-03-08 07:43 | NUR ---
MS RN OPENING NOTE Patient in bed, awake. A/O x 3-4, able to make needs known. On room air, breathing evenly and unlabored. No SOB or s/s of distress noted. Iv access on RFA #20G, intact and patent. Vital catheter in place draining to a yellow colored urine. Safety precautions in place: bed in low, locked position; siderails up x 2; call light within reach. Will continue to monitor.
--- NOTE | 2021-03-08 07:56 | NUR ---
WOUND CARE CONSULT: PT PRESENTS WITH SACRAL PRESSURE ULCER WHICH EXTENDS TO RT BUTTOCK AND LEFT BUTTOCK SCARRING, PRESENT ON ADMISSION. PT INCONTINENT OF STOOL. PT PLACES HER HAND ON HER BUTTOCKS, CRYING AND COMPLAINING OF PAIN. PEÑA CATH NOTED. PT ANGRY AND IRRITABLE AT TIMES. SURGICAL CONSULT WAS MADE TO DR FLETCHER. RECOMMENDATIONS MADE FOR SKIN PROTECTION. DISCUSSED WITH NURSING STAFF. PT DEMONSTRATES ABILITY TO ASSIST WITH TURNING AND REPOSITIONING IN BED BUT PT STATES IT IS PAINFUL. MD IN AGREEMENT WITH PLAN OF CARE. Addendum: 03/08/21 at 0759 by CAMILA SHINE WNDNU Amended: Links added.
[2021-03-08 08:00] VITALS: BP 112/57
[2021-03-08 08:06] LABS: ALBUMIN 2.7 g/dL (3.4-5.0); BILIRUBIN,TOTAL 0.2 mg/dL (0.2-1.0); CALCIUM, SERUM 8.7 mg/dL (8.5-10.1); CREATININE 0.5 mg/dL (0.6-1.3); MAGNESIUM 2.2 mg/dL (1.8-2.4); PHOSPHORUS 3.5 mg/dL (2.5-4.9); POTASSIUM 3.3 mmol/L (3.5-5.1); TOTAL PROTEIN, SERUM 7.1 g/dL (6.4-8.2)
[2021-03-08] MEDS ORDERED: POTASSIUM CHLORIDE 20 MEQ TAB.PRT.SR PO ONE (08:30)
[2021-03-08] MEDS: MORPHINE SULFATE SR 15 MG TABLET.SA PO SCH ×2 (08:51→21:00)
[2021-03-08] MEDS: NITROFURANTOIN/MONOHYDRATE MACROCRYSTALS 100 MG CAPSULE PO SCH ×2 (08:51→18:34)
[2021-03-08] MEDS: GABAPENTIN 300 MG CAPSULE PO SCH ×3 (08:51→18:34)
[2021-03-08] MEDS ORDERED: LORAZEPAM INJ 2 MG/ML VIAL IV ONE ×2 (10:30→13:30)
[2021-03-08] MEDS: LIDOCAINE 5% (PATCH) 1 EA PATCH TP SCH ×2 (15:00→15:26)
[2021-03-08] MEDS: LOPERAMIDE HCL (2 MG CAP) 2 MG CAPSULE PO PRN ×2 (15:25→23:46)
[2021-03-08] MEDS: KETOROLAC TROMETHAMINE INJ 30 MG/ML VIAL IV SCH ×2 (15:25→23:19)
[2021-03-08 16:00] VITALS: BP 107/63
--- NOTE | 2021-03-08 16:03 | NUR ---
SS consult: SS consult requested for stage 3 pressure ulcer. Pt. is a 70-year-old Cuacasian female brought in due to complaints of not being able to walk this morning due to pain. Per EMR, Pt. has a history of sacral fracture. Per EMR, Pt. comes from home [[id number] [address]; [phone]] where she lives alone at home with no caregiver. Per ALIYAH, pt. reports increasing difficulty with ambulating and taking acre of self. Upon SS consult, pt. is alert and oriented x1 (Year). Pt. appeared lethargic and drowsy. Pt. presents with a dysphoric mood and slurred speech. Per EMR[facility] Pt. was unable to adequately participate in interview since she was recently medicated. SW will follow up at a later time.
[2021-03-08] MEDS: HYDROGEL DRESSING 90 GM TUBE TP SCH (17:00)
[2021-03-08] MEDS: PYRIDOXINE HCL 50 MG TABLET PO SCH (18:35)
[2021-03-08] MEDS: METHOCARBAMOL (500MG) 500 MG TABLET PO SCH ×2 (18:35→23:19)
[2021-03-08] MEDS: ENOXAPARIN SODIUM 40 MG/0.4 ML DISP.SYRIN SQ SCH (18:35)
--- NOTE | 2021-03-08 19:29 | NUR ---
MS RN CLOSING NOTE Patient in asleep. A/O x 3. On room air, breathing evenly and unlabored. No SOB or s/s of distress noted. IV access on RFA #20G, intact and patent. Patient refused IV fluid. Vital catheter in place draining to a yellow colored urine with an output of 100 cc. Due meds given. All needs attended to. Safety precautions in place: bed in low, locked position; siderails up x 2; call light within reach. Will endorse to cnc machinist 2nd shift nurse for COLE.
[2021-03-08 20:00] VITALS: BP 114/72
[2021-03-08] MEDS ORDERED: MORPHINE SULFATE SR 15 MG TABLET.SA PO SCH (21:00)
--- NOTE | 2021-03-08 21:59 | NUR ---
RN NOTES Patient was sleeping-MS Contin 15 mg po was not given
--- NOTE | 2021-03-08 23:00 | NUR ---
RN NOTES new IV access started on the left wrist # 22
[2021-03-09] MEDS: MORPHINE SULFATE INJ 2 MG/ML DISP.SYRIN IV PRN (01:14)
[2021-03-09] MEDS: METHOCARBAMOL (500MG) 500 MG TABLET PO SCH ×3 (05:18→17:09)
[2021-03-09] MEDS: KETOROLAC TROMETHAMINE INJ 30 MG/ML VIAL IV SCH ×3 (06:30→22:41)
--- NOTE | 2021-03-09 06:44 | NUR ---
RN NOTES Sleeping but arousanle, morning care rendered, call light within reach, feliciaupx2, pt. needs attended
--- NOTE | 2021-03-09 07:56 | NUR ---
MS RN OPENING NOTE Patient in bed, asleep. A/O x 3. On room air, breathing evenly and unlabored. No SOB or s/s of distress noted. IV access on left wrist #22G, intact and patent. Vital catheter in place draining to a yellow colored urine. Safety precautions in place: bed in low, locked position; siderails up x 2; call light within reach. Will continue to monitor.
[2021-03-09] MEDS: NITROFURANTOIN/MONOHYDRATE MACROCRYSTALS 100 MG CAPSULE PO SCH ×2 (08:20→17:09)
[2021-03-09] MEDS: GABAPENTIN 300 MG CAPSULE PO SCH ×3 (08:20→17:09)
[2021-03-09] MEDS: MORPHINE SULFATE SR 15 MG TABLET.SA PO SCH ×2 (08:20→20:38)
[2021-03-09] MEDS: HYDROGEL DRESSING 90 GM TUBE TP SCH (08:35)
[2021-03-09] MEDS: LIDOCAINE 5% (PATCH) 1 EA PATCH TP SCH (15:11)
[2021-03-09 15:49] LABS: BILIRUBIN,URINE NEGATIVE (NEGATIVE); COLOR,URINE YELLOW (YELLOW); LEUKOCYTE ESTERASE ,URINE MODERATE (NEGATIVE); NITRITE, URINE NEGATIVE (NEGATIVE); PROTEIN,URINE 30 mg/dl (NEGATIVE); UGLUCOSE NEGATIVE (NEGATIVE)
[2021-03-09 16:25] LABS: BACTERIA,URINE 1+ /HPF (None Seen); RBC,URINE 0-2 /HPF (0-2); SQUAMOUS EPITHELIAL CELL,UR Few /HPF (None Seen); WBC,URINE 81-100 /HPF (0-3)
[2021-03-09] MEDS: PYRIDOXINE HCL 50 MG TABLET PO SCH (17:09)
[2021-03-09] MEDS: ENOXAPARIN SODIUM 40 MG/0.4 ML DISP.SYRIN SQ SCH (17:10)
--- NOTE | 2021-03-09 19:30 | NUR ---
MS RN OPENING NOTE RECEIVED PATIENT AWAKE IN BED. A/O X3. PT STABLE ON ROOM AIR. NO SOB OR S/S OF RESPIRATORY DISTRESS NOTED. IV ACCESS L WRIST 22 GAUGE, INTACT AND PATENT. PT REFUSING IVF AT THIS TIME. PEÑA CATHETER IN PLACE DRAINING YELLOW URINE. DRESSINGS C/D/I/. SAFETY PRECAUTIONS IN PLACE. BED IN LOWEST LOCKED POSITION, HOB ELEVATED, SIDE RAILS UP X2, AND CALL LIGHT AND TABLE WITHIN REACH. WILL CONTINUE WITH PLAN OF CARE.
--- NOTE | 2021-03-09 19:46 | NUR ---
MS RN CLOSING NOTE Patient in bed, resting comfortably. A/O x 3, able to make needs known. On room air, breathing evenly and unlabored. No SOB or s/s of distress noted. IV access on left wrist #22G, intact and patent. Vital catheter in place draining to a yellow colored urine with an output of 500cc. all needs attended to. Due meds given. Wound care done on Right and left buttock. Safety precautions maintained: bed in low, locked position; siderails up x 2; call light within reach. Will endorse to hourly shift nurse for COLE. Addendum: 03/09/21 at 1951 by LIYA ESPINO RN Addendum: Patient refusing IV fluids.
[2021-03-09 20:00] VITALS: BP 143/68
--- NOTE | 2021-03-09 20:00 | NUR ---
RN NOTE PT REFUSING IVF. EXPLAINED RISKS AND BENEFITS. PT STILL REFUSED. WILL CONTINUE TO MONITOR.
[2021-03-10] MEDS: METHOCARBAMOL (500MG) 500 MG TABLET PO SCH ×5 (00:09→23:00)
[2021-03-10] MEDS: MORPHINE SULFATE INJ 2 MG/ML DISP.SYRIN IV PRN ×3 (02:57→16:41)
--- NOTE | 2021-03-10 02:57 | NUR ---
RN NOTE PT COMPLAINED OF PAIN 10/10 IN THE SACRUM. ADMINISTERED MORPHINE 2 MG FOR SEVERE PAIN ORDERED. VSS. WILL CONTINUE TO MONITOR.
--- NOTE | 2021-03-10 06:38 | NUR ---
MS RN CLOSING NOTE PATIENT AWAKE IN BED. A/O X3. PT STABLE ON ROOM AIR. NO SOB OR S/S OF RESPIRATORY DISTRESS NOTED. IV ACCESS L WRIST 22 GAUGE, INTACT AND PATENT. PT REFUSING IVF AT THIS TIME. PEÑA CATHETER IN PLACE DRAINING 700 CC OF YELLOW URINE. DRESSINGS C/D/I/. ALL NEEDS MET AT THIS TIME. SAFETY PRECAUTIONS IN PLACE AT ALL TIMES. BED IN LOWEST LOCKED POSITION, HOB ELEVATED, SIDE RAILS UP X2, AND CALL LIGHT AND TABLE WITHIN REACH. WILL ENDORSE TO ONCOMING NURSE FOR COLE.
--- NOTE | 2021-03-10 07:30 | NUR ---
ms rn received on bed, awake,alert,oriented x4,not in any form of distress, respirations even and unlabored,no sob noted, lungs are diminish,abdomen soft,positive bowel sounds,denies pain at this time, will monitor patient.
[2021-03-10] MEDS ORDERED: ENOX40DI SQ (08:11)
[2021-03-10] MEDS ORDERED: NITR100C15 PO (08:11)
[2021-03-10] MEDS: GABAPENTIN 300 MG CAPSULE PO SCH ×3 (08:35→16:41)
[2021-03-10] MEDS: NITROFURANTOIN/MONOHYDRATE MACROCRYSTALS 100 MG CAPSULE PO SCH ×2 (08:35→16:41)
[2021-03-10] MEDS: MORPHINE SULFATE SR 15 MG TABLET.SA PO SCH ×2 (08:40→20:11)
[2021-03-10] MEDS: HYDROGEL DRESSING 90 GM TUBE TP SCH (08:42)
[2021-03-10 08:44] VITALS: BP 130/80
[2021-03-10] MEDS: KETOROLAC TROMETHAMINE INJ 30 MG/ML VIAL IV SCH (08:52)
--- NOTE | 2021-03-10 09:00 | NUR ---
ms hicks breakfast served, due meds given,tolerated well.
--- NOTE | 2021-03-10 11:20 | NUR ---
ms hicks was seen by pt w/ tolerated exercise well.
--- NOTE | 2021-03-10 12:00 | NUR ---
ms rn on bed,no distress noted.
[2021-03-10] MEDS ORDERED: SILVER NITRATE APPLICATOR 1 EA BOX TP STA (12:09)
[2021-03-10 15:45] VITALS: BP 135/67
[2021-03-10] MEDS: LIDOCAINE 5% (PATCH) 1 EA PATCH TP SCH (15:48)
[2021-03-10] MEDS: ENOXAPARIN SODIUM 40 MG/0.4 ML DISP.SYRIN SQ SCH (16:27)
[2021-03-10] MEDS: PYRIDOXINE HCL 50 MG TABLET PO SCH (16:41)
--- NOTE | 2021-03-10 18:36 | NUR ---
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
--- NOTE | 2021-03-10 20:00 | NUR ---
RN NOTE PT AWAKE/ALERT, ABLE TO VERBALIZE ALL NEEDS. PT VERBALIZES UNDERSTANDING OF DISCHARGE INSTRUCTIONS AND STATES THAT HER FRIEND, FIORELLA, WILL PICK HER UP AROUND 11PM TONIGHT. DC'D IV SITE ON L-WRIST; DC'D F/C. PT IN NO ACUTE DISTRESS. WILL CONT TO MONITOR.
--- NOTE | 2021-03-10 22:00 | NUR ---
RN NOTE PT USED BEDPAN TO VOID, NO C/O ANY DIFFICULTY URINATING.
--- NOTE | 2021-03-10 23:00 | NUR ---
RN NOTE PT STATED HER FRIEND, FIORELLA, ISN'T ANSWERING AT THIS TIME. ALSO ATTEMPTED TO CALL, NO ANSWER. WILL TRY AGAIN LATER.
--- NOTE | 2021-03-10 23:30 | NUR ---
RN NOTE STILL UNABLE TO CONTACT PT'S FRIEND AT THIS TIME.
[2021-03-11] MEDS: MORPHINE SULFATE INJ 2 MG/ML DISP.SYRIN IV PRN (00:03)
--- NOTE | 2021-03-11 00:35 | NUR ---
RN NOTE PER PT, HER FRIEND IS NOW COMING TO PICK HER UP. PT READIED FOR DC, ASSISTED TO CHANGE, PT HAS HER OWN PULL-UPS. ALL DC PAPERS GIVEN AND INSTRUCTIONS PROVIDED. PT VERBALIZED UNDERSTANDING.
--- NOTE | 2021-03-11 00:45 | NUR ---
RN NOTE PT'S FRIEND, FIORELLA GLASER, HERE TO PR INTERN PT FOR DC HOME. ASSISTED PT FROM BED TO WHEELCHAIR, PT ABLE TO STAND AND TAKE A FEW STEPS TO TRANSFER. WHEELED PT DOWN AND ASSISTED INTO CAR. PT DISCHARGED IN STABLE CONDITION.
== END 2021-03-11 00:45 | disposition home health service (06) | DRG 463 ==
LOC: ER 08:33 → MED 13:01
PROVIDERS: ADMIT Internal Medicine; ATTEND Internal Medicine
PROC: 0JB90ZZ Excision of Buttock Subcutaneous Tissue and Fascia, Open Approach (ICD-10-PCS; principal; 2021-03-08)
DX: M48.061 Spinal stenosis, lumbar region without neurogenic claudication (principal); L89.313 Pressure ulcer of right buttock, stage 3; N39.0 Urinary tract infection, site not specified; F11.20 Opioid dependence, uncomplicated; E87.6 Hypokalemia; D64.9 Anemia, unspecified; L89.152 Pressure ulcer of sacral region, stage 2; R26.89 Other abnormalities of gait and mobility; Z91.81 History of falling; F20.9 Schizophrenia, unspecified; F31.9 Bipolar disorder, unspecified; G89.4 Chronic pain syndrome; Z87.440 Personal history of urinary (tract) infections; Z98.1 Arthrodesis status
CPT/HCPCS: 36415; 71045-TC; 72148-TC; 80048-TC; 80053-TC; 81001; 83605-TC; 83735-TC; 84100-TC; 84132-TC; 85025-TC; 87081-TC; 87086-TC; 87186-TC; 93970-TC; 97110-TC; 97530-TC; A6248; A6403; C9803; G0378; J0696; J1650; J1885; J2060; J2270; J7030; J7050; J7060

== ENCOUNTER 2021-06-16 02:31 | Emergency (ER) | payer MEDICARE, OTHER ==
[~2021-06-16] VITALS: Ht 154.9 cm; Wt 67.6 kg
[~2021-06-16 02:31] MED LIST changes: +AMIT10TA6 PO; +BETH50TA2 PO; +ENOX40DI SQ; -ENOX80DI9 SQ; -MELA1TAB27 PO; +NITR100C15 PO; -PREG200C PO; -PREG200C59 PO; +TIZA-180 PO
[2021-06-16 04:13] VITALS: BP 107/72
--- NOTE | 2021-06-16 04:24 | NUR ---
BIBS. AAOX4. NOT IN RESP DISTRESS. AMBUALTORY WITH A FWW. NOT IN RESP DISTRESS. CAME IN FOR RECTAL PAIN 2ND TO PROLAPSE. NOTED PROLAPSE ABOUT 4 INCHES OUT. PAIN IS 8/10. MD AT BEDSIDE FOR EVAL.
--- NOTE | 2021-06-16 05:14 | NUR ---
Patient discharged to home in stable condition. Written and verbal after care instructions given. Patient verbalizes understanding of instruction. Pt ambulatory with a steady gait
== END 2021-06-16 05:15 | disposition home or self-care (01) ==
LOC: ER 02:38
DX: K62.3 Rectal prolapse (principal); Z86.69 Personal history of other diseases of the nervous system and sense organs; Z87.39 Personal history of other diseases of the musculoskeletal system and connective tissue; Z88.8 Allergy status to other drugs, medicaments and biological substances; Z60.2 Problems related to living alone; Z79.899 Other long term (current) drug therapy

== ENCOUNTER 2021-07-21 21:57 | Emergency (ER) | payer MEDICARE, MEDICAID ==
--- NOTE | 2021-07-21 22:30 | NUR ---
PATIENT CALLED TO TRIAGE NO ANSWER.
--- NOTE | 2021-07-21 23:00 | NUR ---
PATIENT NOT IN WAITING ROOM
== END 2021-07-21 23:30 | disposition left against medical advice (07) ==
LOC: ER 22:02
DX: Z53.21 Procedure and treatment not carried out due to patient leaving prior to being seen by health care provider (principal)

== ENCOUNTER 2022-04-29 20:09 | Inpatient (IN) | payer MEDICARE, OTHER ==
[~2022-04-29] VITALS: Ht 154.9 cm; Wt 81.3 kg
[2022-04-29] MEDS ORDERED: MORPHINE SULFATE INJ 4 MG/ML DISP.SYRIN ONE (21:10)
[2022-04-29] MEDS ORDERED: GABAPENTIN 300 MG CAPSULE ONE (21:26)
[2022-04-29] MEDS ORDERED: GABAPENTIN 100 MG CAPSULE PO ONE (21:30)
[2022-04-29] MEDS ORDERED: MORPHINE SULFATE INJ 2 MG/ML DISP.SYRIN IV ONE (21:30)
[2022-04-29] MEDS ORDERED: IV NS 0.9% 1,000 ML IV ONE (21:30)
--- NOTE | 2022-04-29 21:39 | NUR ---
PT IN BED 5 FRANTIC BREATHING IS RAPID 98% ON ROOM AIR. C/O: S/P SPINAL Sx 11/20 PAIN. ENDORSES THAT SHE DID NOT TAKE ANY PAIN MEDS PRIOR TO ARRVING TO ER. PT CONNECTED TO BED SIDE MONITOR IN LOW FLOWLERS FOR BACK COMFORT.
--- NOTE | 2022-04-29 21:40 | NUR ---
20G RAC S/L NO S/S OF INFILTRATION. LABS DRAWN AND SENT TO LAB.
[2022-04-29] MEDS ORDERED: HYDROMORPHONE 1 MG/1 ML DISP.SYRIN IV ONE (22:30)
[2022-04-29] MEDS ORDERED: HYDROMORPHONE 1 MG/1 ML DISP.SYRIN ONE (22:33)
--- NOTE | 2022-04-29 22:34 | NUR ---
COVID SWAB SENT TO LAB
[2022-04-29 22:42] LABS: BASOPHILS # (AUTO) 0.1 K/uL (0.0-0.2); BASOPHILS % (AUTO) 0.4 % (0.0-2.0); EOSINOPHILS % (AUTO) 4.4 % (0.0-6.0); HEMATOCRIT 40 % (33-45); HEMOGLOBIN 12.9 g/dL (11.5-14.8); LYMPHOCYTES # (AUTO) 2.8 K/uL (0.8-4.8); LYMPHOCYTES % (AUTO) 17.7 % (20.0-44.0); MEAN CORPUSCULAR HGB CONC 32 g/dl (31.0-36.0); MEAN CORPUSCULAR VOLUME 90 fL (82-100); MONOCYTES # (AUTO) 0.8 K/uL (0.1-1.30); MONOCYTES % (AUTO) 5.2 % (2.0-12.0); NEUTROPHILS # (AUTO) 11.6 K/uL (1.8-8.9); NEUTROPHILS % (AUTO) 72.3 % (43.0-81.0); PLATELET COUNT (AUTO) 307 K/uL (150-450); RED BLOOD CELL COUNT(AUTO) 4.42 MIL/uL (4.0-5.2); WHITE BLOOD COUNT (AUTO) 16.1 K/uL (4.3-11.0)
[2022-04-29 22:52] LABS: CREATININE 0.7 mg/dL (0.6-1.3); POTASSIUM 4.4 mmol/L (3.5-5.1)
--- NOTE | 2022-04-29 23:22 | NUR ---
handoff report given to Reva LOVELACE.
--- NOTE | 2022-04-29 23:55 | NUR ---
pt transported to 3rd floor
--- NOTE | 2022-04-30 00:10 | NUR ---
freight car cleaner [employer] notes Received Pt from [place] Bermudez. Pt is alert and orientedX4. on room air. no SOB. No S/S of distress noted. VS is stable. IV site at RAC# 20 is clean, intact and flushes well. Pt just had lumbar SX at [facility] 04/24/2022. Dressing in posterior back has blood. Dr. Palomino is aware and informed. Skin assessment is done and performed. Pt refuses skin wound pictures. Explained risks and benefits. Pt also refuses belonging checks. Witness by VAUGHN Peña. Explained risks and benefits. Reorient Pt to the room and the use of call light. Pt verbalize understanding. Safety precautions is maintained. Bed at low position, brakes locked, side rails upX2, hob elevated, bed alarm is on and call light is within reach. will continue to monitor.
[2022-04-30 00:30] VITALS: BP 112/57
[2022-04-30] MEDS ORDERED: MAGNESIUM HYDROXIDE 30 ML UDC PO PRN (00:30)
[2022-04-30] MEDS ORDERED: MORPHINE SULFATE INJ 2 MG/ML DISP.SYRIN IV PRN (00:30)
[2022-04-30] MEDS ORDERED: ACETAMINOPHEN 325 MG TABLET PO PRN (00:30)
[2022-04-30] MEDS ORDERED: ONDANSETRON HCL/PF 4 MG/2 ML VIAL IVP PRN (00:30)
[2022-04-30] MEDS: ENOXAPARIN SODIUM 40 MG/0.4 ML DISP.SYRIN SQ SCH ×2 (00:30→20:20)
[2022-04-30] MEDS ORDERED: Z GUARD REMEDY 4 OZ OINT TP PRN (00:30)
--- NOTE | 2022-04-30 00:40 | NUR ---
RN notes Informed and notify Dr. Palomino that Pt just had lumbar sx at [facility] on 04/24/2022. Pt's dressing in the back has blood. ordered to held lovenox. Charge nurse is aware and informed. will continue to monitor.
--- NOTE | 2022-04-30 00:50 | NUR ---
RN notes Pt's blood sugar 145. Pt refuses coverage. Explained risks and benefits. Pt keep refusing. Will continue to monitor.
[2022-04-30] MEDS ORDERED: DEXTROSE 50%-WATER 50 ML DISP.SYRIN IV PRN (01:00)
--- NOTE | 2022-04-30 01:20 | NUR ---
RN notes Dr. Palomino ordered to held lovenox at this time.
--- NOTE | 2022-04-30 03:01 | NUR ---
RN notes Collected UA per MD ordered.
--- NOTE | 2022-04-30 06:15 | NUR ---
RN notes Pt is complaining of back pain 10/10 on pain scale. Pt requesting pain med. administered morphine/iv/prn as ordered for pain. safety precautions is maintained. will continue to monitor.
[2022-04-30] MEDS: BLOOD SUGAR DIAGNOSTIC 1 EACH STRIP IN SCH ×4 (06:40→22:00)
[2022-04-30] MEDS: INSULIN REGULAR, HUMAN 100 UNIT/ML 3 ML VIAL SQ PRN (06:41)
--- NOTE | 2022-04-30 06:41 | NUR ---
RN notes Pt's blood sugar AC 146. Pt refuses coverage. Explained risks and benefits. Pt keep refusing. will continue to monitor.
[2022-04-30 06:45] LABS: BILIRUBIN,URINE NEGATIVE (NEGATIVE); COLOR,URINE YELLOW (YELLOW); LEUKOCYTE ESTERASE ,URINE NEGATIVE (NEGATIVE); NITRITE, URINE NEGATIVE (NEGATIVE); PH,URINE 7.5 (5.0-8.0); PROTEIN,URINE NEGATIVE (NEGATIVE); UGLUCOSE NEGATIVE (NEGATIVE)
--- NOTE | 2022-04-30 06:52 | NUR ---
RN closing notes Pt is resting in bed comfortably. Pt is alert and orientedX4. on room air. no SOB. No S/S of distress noted. VS is stable. IV site at RAC# 20 is clean, intact and SL. Purewick is inplaced and draining yellow urine. Kept Pt clean, dry and comfortable. Safety precautions is maintained. Bed at low position, brakes locked, side rails upX2, hob elevated, bed alarm is on and call light is within reach. Will endorse to am nurse for COLE.
--- NOTE | 2022-04-30 07:00 | NUR ---
RN Opening notes Received Pt asleep but arousable. Pt on room air. no SOB. No S/S of distress noted at this time. IV site at RAC# 20 is clean, intact and SL. Purewick is inplaced and draining yellow urine. Kept Pt clean, dry and comfortable. Safety precautions is maintained. Bed at low position, brakes locked, side rails upX2, hob elevated, bed alarm is on and call light is within reach. Will continue to monitor COLE.
[2022-04-30 07:58] VITALS: BP 100/50
[2022-04-30] MEDS: PANTOPRAZOLE 40 MG TABLET.DR PO SCH (08:08)
[2022-04-30 08:33] LABS: BACTERIA,URINE Rare /HPF (None Seen); RBC,URINE 0-2 /HPF (0-2); SQUAMOUS EPITHELIAL CELL,UR Few /HPF (None Seen); WBC,URINE 0-2 /HPF (0-3)
--- NOTE | 2022-04-30 09:33 | NUR ---
WOUND CARE CONSULT: PT PRESENTS WITH LEFT KNEE SKIN TEAR WELL MULTIPLE DRESSINGS/STERI STRIP TAPES INCLUDING LEFT WAIST AREA, LOWER BUTTOCKS AND LUMBAR DRESSING, PRESENT ON ADMISSION. LUMBAR DRESSING HAS PINK/RED SHADOW FROM DRAINAGE, PRESENT ON ADMISSION. RECOMMEND SURGICAL FOLLOW UP. RECOMMEND REINFORCE DRESSING NEEDED. PT ANGRY AND IRRITABLE AT TIMES, CURSING AT TIMES. DISCUSSED SKIN PROTECTION WITH NURSING STAFF. MD IN AGREEMENT WITH PLAN OF CARE. Addendum: 04/30/22 at 0939 by CAMILA SHINE WNDNU PT ALSO NOTED TO HAVE SCARRING TO SACRAL AREA/BILATERAL BUTTOCKS.
[2022-04-30] MEDS: MORPHINE SULFATE INJ 2 MG/ML DISP.SYRIN IV PRN ×3 (10:24→20:29)
--- NOTE | 2022-04-30 11:49 | NUR ---
PATIENT REFUSED GLUCOSE ASSESSMENT THRU ACCU CHECK
[2022-04-30 16:00] VITALS: BP 94/54
--- NOTE | 2022-04-30 17:02 | NUR ---
Patient refused regular insulin shot for blood sugar reading of 177
--- NOTE | 2022-04-30 19:25 | NUR ---
RN closing notes Pt is resting in bed comfortably. Pt is alert and orientedX4. on room air. no SOB. No S/S of distress noted. IV site at RAC# 20 SL C/D/I. Pt in Purewick and draining yellow urine. Kept Pt clean, dry and comfortable. Safety precautions is maintained. Bed at low position, brakes locked, side rails upX2, hob elevated, bed alarm is on and call light is within reach. Will be endorse to night time babysitter nurse for COLE.
--- NOTE | 2022-04-30 19:45 | NUR ---
TELERN RECEIVED FULLY AWAKE, STARTED TO CRY, STATED SHE IS IN TOO MUCH BACK PAIN INCLUDING HER FEET. PAIN MGT DISCUSSED WITH PATIENT APPEARS TO UNDERSTAND, AT THIS TIME. REFUSED TO BE REPOSITIONED. STATED EVEN BEDSHEETS HURTS HER FEET. TRIED TO MAKE PATIENT COMFORTABLE STATED WILL CALL IF PAIN UNBEARABLE. CALL LIGHT WITHIN REACH. TO CONTINUE
[2022-04-30 20:00] VITALS: BP 108/66
--- NOTE | 2022-04-30 20:30 | NUR ---
MAHENDRA SCREAMING IN PAIN MORPHINE 2 MG IVP ADMINISTERED SLOWLY. STATED HURTS WHEN FLUSH BUT MORPHINE DOES NOT. OFFERED NEED TO RE-START ANOTHER LINE REFUSED,, DOES NOT WANT TO BE RESTARTED.
[2022-04-30] MEDS: GABAPENTIN 300 MG CAPSULE PO SCH (21:55)
[2022-04-30] MEDS: TIZANIDINE HCL 4 MG TABLET PO SCH (21:55)
[2022-04-30] MEDS: AMITRIPTYLINE HCL 10 MG TABLET PO SCH (21:55)
--- NOTE | 2022-04-30 22:00 | NUR ---
TELERN REFUSED ACCUCHECK, STATED WILL TELL MD TO HAVE A PATCH INSTEAD. OTHER DUE MEDS ADMINISTERED. MED RECON DONE RELAYED TO DR. BELTRAN. ORDERS RECEIVED
--- NOTE | 2022-04-30 22:35 | NUR ---
TELERN OXY IR 5 MG PO GIVEN FOR BREAKTHROUGH PRN. REMINDED TIME FRAME OF HER PAIN MED.
[2022-04-30] MEDS: oxyCODONE IR immediate release 5 MG PO PRN (22:45)
--- NOTE | 2022-04-30 22:45 | NUR ---
TELERN RESISTIVE TO CARE, REFUSED TO BE CHANGED. AGREED ONLY TO BE REPOSITIONED. BACK SUPPORTED WITH PILLOWS
[2022-05-01] MEDS: MORPHINE SULFATE INJ 2 MG/ML DISP.SYRIN IV PRN ×4 (00:41→16:03)
--- NOTE | 2022-05-01 05:54 | NUR ---
TELERN AGREED TO BE CHANGED 30 MINS POST MORPHINE IV ,REPOSITIONED, KEPT DRY CLEAN AND COMFORTABLE.HAD LARGE BM. PUREWICK CHANGED WAS LEAKING EARLIER.
--- NOTE | 2022-05-01 05:56 | NUR ---
TELERN REFUSED AGAIN ACCUCHECKS.
[2022-05-01] MEDS: BLOOD SUGAR DIAGNOSTIC 1 EACH STRIP IN SCH ×4 (07:01→22:00)
--- NOTE | 2022-05-01 07:02 | NUR ---
TELERN STILL REFUSED ACCUCHECKS.
[2022-05-01 08:00] VITALS: BP 90/46
--- NOTE | 2022-05-01 08:17 | NUR ---
MS RN OPENING NOTE Patient in bed, asleep. A/O x 4. On room air, no SOB or s/s of distress noted. IV access on RAC #20 SL, intact and patent. Purewick in place draining to an rudy colored urine. Safety precautions in place: bed in low, locked position; siderails up x 2; call light within reach. Will continue to monitor.
[2022-05-01] MEDS: BETHANECHOL CHLORIDE (25 MG) 25 MG TABLET PO SCH ×3 (08:20→17:25)
[2022-05-01] MEDS: PANTOPRAZOLE 40 MG TABLET.DR PO SCH (08:20)
[2022-05-01] MEDS: GABAPENTIN 300 MG CAPSULE PO SCH ×3 (08:20→17:25)
[2022-05-01] MEDS: TIZANIDINE HCL 4 MG TABLET PO SCH ×2 (09:55→17:25)
--- NOTE | 2022-05-01 12:05 | NUR ---
RN NOTE Patient's blood glucose is 178. Refused Insulin coverage. Explained the benefits and risks, patient still refused. Patient states "I don't want to be poked again".
[2022-05-01 13:09] LABS: BASOPHILS # (AUTO) 0.1 K/uL (0.0-0.2); EOSINOPHILS % (AUTO) 6.9 % (0.0-6.0); HEMATOCRIT 32 % (33-45); HEMOGLOBIN 10.6 g/dL (11.5-14.8); LYMPHOCYTES # (AUTO) 1.7 K/uL (0.8-4.8); MEAN CORPUSCULAR HGB CONC 33 g/dl (31.0-36.0); MEAN CORPUSCULAR VOLUME 92 fL (82-100); MONOCYTES # (AUTO) 0.8 K/uL (0.1-1.30); MONOCYTES % (AUTO) 7.5 % (2.0-12.0); NEUTROPHILS # (AUTO) 7.7 K/uL (1.8-8.9); NEUTROPHILS % (AUTO) 69.6 % (43.0-81.0); PLATELET COUNT (AUTO) 144 K/uL (150-450); WHITE BLOOD COUNT (AUTO) 11.1 K/uL (4.3-11.0)
[2022-05-01 13:12] LABS: CALCIUM, SERUM 7.8 mg/dL (8.5-10.1); CREATININE 0.5 mg/dL (0.6-1.3); PHOSPHORUS 3.3 mg/dL (2.5-4.9); POTASSIUM 4.3 mmol/L (3.5-5.1)
[2022-05-01] MEDS ORDERED: LUBI24CA5 PO (17:24)
[2022-05-01] MEDS ORDERED: OXYC10TA49 PO (17:24)
[2022-05-01] MEDS ORDERED: ALEN70TA80 PO (17:24)
[2022-05-01] MEDS ORDERED: TAMS-12 PO (17:24)
[2022-05-01] MEDS ORDERED: OMEP40CA21 PO (17:24)
[2022-05-01] MEDS ORDERED: DULO60CA64 PO (17:24)
[2022-05-01] MEDS ORDERED: BACL10TA PO (17:24)
[2022-05-01] MEDS ORDERED: HYDR2TAB7 PO (17:24)
[2022-05-01] MEDS ORDERED: CYCL10TA9 PO (17:24)
[2022-05-01] MEDS ORDERED: META-25 PO (17:24)
[2022-05-01] MEDS ORDERED: DIPH1TAB28 PO (17:24)
[2022-05-01] MEDS ORDERED: OXYC5TAB3 PO (17:24)
--- NOTE | 2022-05-01 19:45 | NUR ---
MS RN CLOSING NOTE Patient in bed, resting. A/O x 4, able to make needs known. Stable on room air, no SOB or s/s of distress noted. IV access on RAC #20 SL, intact and patent. Purewick in place draining to an rudy colored urine with an output of 400 cc. Due meds given. All needs attended to. Photos taken of incision on back, wound care consult requested. Safety precautions in place: bed in low, locked position; siderails up x 2; call light within reach. Will endorse to night custodian nurse for [facility].
[2022-05-01 20:00] VITALS: BP_SYST 107; BP_SYST 80; BP_DIAS 48; BP_DIAS 77
--- NOTE | 2022-05-01 20:11 | NUR ---
MS RN OPENING NOTE PATIENT SLEEPING IN BED, EASILY AWAKENED, PT ALERT/ORIENTED X 4, PT ABLE TO MAKE NEEDS KNOWN. PATIENT STABLE ON RA, NO S/S OF DISTRESS OR SOB NOTED, BREATHING EVEN AND UNLABORED. IV ACCESS ON RAC #20G INTACT AND SALINE LOCKED. PUREWICK IN PLACE AND DRAINING BETHEL URINE. SAFETY MEASURES IN PLACE :CALL LIGHT WITHIN REACH, SIDE RAILS UP X 2, BED LOCKED IN LOWEST POSITION, HOB ELEVATED, BED ALARM ON. WILL CONTINUE TO MONITOR PATIENT
--- NOTE | 2022-05-01 20:25 | NUR ---
RN NOTE REASSESSED PATIENT'S BP, PATIENT'S BP RUNS ON LOW SIDE, PATIENT'S BP NOW 92/57, HR: 65. WILL CONTINUE TO MONITOR PATIENT
[2022-05-01 20:30] VITALS: BP 92/57
[2022-05-01] MEDS: oxyCODONE IR immediate release 5 MG PO PRN (21:07)
[2022-05-01] MEDS: ENOXAPARIN SODIUM 40 MG/0.4 ML DISP.SYRIN SQ SCH (21:11)
--- NOTE | 2022-05-01 21:17 | NUR ---
MS RN NOTE PATIENT CRYING AND MOANING AND C/O OF 9/10 FOOT PAIN. OXY IR GIVEN ORDERED. WILL CONTINUE TO MONITOR PATIENT
--- NOTE | 2022-05-01 21:58 | NUR ---
MS RN NOTE PATIENT CRYING, YELLING IN PAIN, C/O OF UNBEARABLE BILATERAL FEET NEUROPATHY PAIN. PATIENT WANTS MORE PAIN MEDICATION DESPITE OXY IR 5 MG GIVEN RECENTLY. PATIENT HAS ORDER FOR MORPHINE 2 MG IV HOWEVER BP RUNNING LOW. CONTACT INFORMATION CLERK BROKERAGE MD SHANE WAN, PER DOC GIVE ONE TIME DOSE OF GABAPENTIN 300 MG PO NOW, WELL ANOTHER ONE TIME DOSE OF OXY IR 5 MG NOW. ALSO CHANGE GABAPENTIN 300 MG TID TO GABAPENTIN 600 MG TID STARTING TOMORROW AT 9 AM. ORDERS VERIFIED AND CARRIED OUT
[2022-05-01] MEDS ORDERED: GABAPENTIN 300 MG CAPSULE PO ONE (22:00)
[2022-05-01] MEDS ORDERED: oxyCODONE IR immediate release 5 MG PO ONE (22:00)
--- NOTE | 2022-05-01 22:18 | NUR ---
MS RN NOTE PATIENT REFUSED HS ACCU CHECK, STATES "I DON'T WANT TO BE POKED". RISKS AND BENEFITS EXPLAINED TO PATIENT, PT STILL REFUSED
[2022-05-01] MEDS: AMITRIPTYLINE HCL 10 MG TABLET PO SCH (23:14)
[2022-05-02 01:30] VITALS: BP 148/65
[2022-05-02] MEDS: MORPHINE SULFATE INJ 2 MG/ML DISP.SYRIN IV PRN ×2 (01:40→07:54)
--- NOTE | 2022-05-02 01:51 | NUR ---
MS RN NOTE PATIENT CRYING AND C/O LEG/FOOT PAIN. VITAL SIGNS WNL. MORPHINE 2 MG IV GIVEN ORDERED. WILL CONTINUE TO MONITOR PATIENT
[2022-05-02] MEDS: oxyCODONE IR immediate release 5 MG PO PRN ×2 (04:53→11:50)
--- NOTE | 2022-05-02 04:55 | NUR ---
MS RN NOTE PATIENT C/O OF 8/10 BILATERAL FOOT AND LEG PAIN, OXY IR 5 MG PO GIVEN ORDERED. WILL CONTINUE TO MONITOR PATIENT
--- NOTE | 2022-05-02 06:47 | NUR ---
MS RN CLOSING NOTE PATIENT AWAKE IN BED, PT ALERT/ORIENTED X 4, PT ABLE TO MAKE NEEDS KNOWN. PATIENT STABLE ON RA, NO S/S OF DISTRESS OR SOB NOTED, BREATHING EVEN AND UNLABORED. IV ACCESS ON RAC #20G INTACT AND SALINE LOCKED. MEDICATIONS GIVEN ORDERED, PT NEEDS MET THROUGHOUT SHIFT. PUREWICK IN PLACE AND DRAINING BETHEL URINE, 900 ML BETHEL URINE OUTPUT, PUREWICK CHANGED THIS AM. PATIENT REFUSED ACCU CHECKS THIS SHIFT, STATED SHE DOESN'T "WANT TO BE POKED". SAFETY MEASURES IN PLACE: CALL LIGHT WITHIN REACH, SIDE RAILS UP X 2, BED LOCKED IN LOWEST POSITION, HOB ELEVATED, BED ALARM ON. WILL ENDORSE TO DAYSHIFT RN FOR CONTINUITY OF CARE
[2022-05-02] MEDS: BLOOD SUGAR DIAGNOSTIC 1 EACH STRIP IN SCH ×2 (06:57→11:47)
--- NOTE | 2022-05-02 07:02 | NUR ---
MS RN OPENING NOTES RECEIVED PATIENT SLEEPING IN BED, A/Ox4 ABLE TO MAKE NEEDS KNOWN. ON ROOM AIR, NO S/S OF RESPIRATORY DISTRESS. IV ACCESS R AC #20 S/L, INTACT AND PATENT. INCONTINENT USES DIAPER, HAS PUREWICK DRAINING BETHEL URINE. ON BEDREST. NO S/S OF PAIN OR DISCOMFORT. SKIN ISSUES: L KNEE SKIN TEAR, BACK SX INCISION, R BUTTOCK SCARRING. DRESSINGS INTACT. SAFETY MEASURES IN PLACE: BED LOCKED AND IN LOWEST POSITION, HOB ELEVATED, BED ALARM ON, SIDE RAILS UPx2, CALL LIGHT WITHIN REACH. WILL CONTINUE TO MONITOR.
[2022-05-02] MEDS: PANTOPRAZOLE 40 MG TABLET.DR PO SCH (07:55)
[2022-05-02 08:00] VITALS: BP 99/62
--- NOTE | 2022-05-02 08:30 | NUR ---
RN NOTES PATIENT COMPLAINING ABOUT PAIN 9/10 OF FEET AND BACK. YELLING AND CRYING OUT IN PAIN. PRN MORPHINE ADMINISTERED. WILL CONTINUE TO MONITOR.
[2022-05-02] MEDS: BETHANECHOL CHLORIDE (25 MG) 25 MG TABLET PO SCH ×2 (08:42→13:13)
[2022-05-02] MEDS: GABAPENTIN 300 MG CAPSULE PO SCH ×2 (08:42→13:13)
[2022-05-02] MEDS: TIZANIDINE HCL 4 MG TABLET PO SCH (08:43)
[2022-05-02] MEDS ORDERED: GLUCERNA SHAKE 237 ML CAN PO SCH (09:00)
[2022-05-02] MEDS: INSULIN REGULAR, HUMAN 100 UNIT/ML 3 ML VIAL SQ PRN (11:49)
--- NOTE | 2022-05-02 13:00 | NUR ---
RN NOTES PATIENT COMPLAINED OF PAIN, PRN PERCOCET ADMINISTERED. WILL CONTINUE TO MONITOR
[2022-05-02] MEDS ORDERED: oxyCODONE IR immediate release 5 MG PO ONE (14:30)
--- NOTE | 2022-05-02 14:50 | NUR ---
FLOOR SURFACER NOTES PATIENT D/C TO SNF. REPORT GIVEN TO KEVEN. ON ROOM AIR, STABLE, NO S/SX OF RESPIRATORY DISTRESS, AO X4, ABLE TO MAKE NEEDS KNOWN. DISCHARGE INSTRUCTIONS AND HEALTH TEACHINGS EXPLAINED TO PATIENT. PATIENT VERBALIZED UNDERSTANDING. ALL FORMS SIGNED AND FILED INTO CHART. PHOTOS TAKEN OF SKIN ISSUES FILED INTO CHART. IV ACCESS REMOVED, PRESSURE DRESSING APPLIED. ID BAND REMOVED. PATIENT WANTED PAINT MEDICATION BEFORE DISCHARGE, EDUCATED PATIENT THAT WE ARE UNABLE TO DUE TO BLOOD PRESSURE. PATIENT REFUSING TO BE D/C IF PAIN MEDICATION WAS NOT AVAILABLE. DR. ALVARADO NOTIFIED. ORDERED OXYCODONE 15MG PO, ONE TIME. MEDICATION ADMINISTERED, RISKS AND BENEFITS EXPLAINED TO PATIENT. PT LEFT UNIT AT 1449. ACCOMPANIED BY 2 EVENT REPRESENTATIVE. CHARGE NURSE AND MD AWARE OF DISCHARGE.
== END 2022-05-02 14:50 | DRG 641 ==
LOC: ER 20:10 → MED 23:22
PROVIDERS: ADMIT Nurse Practitioner Family; ATTEND Internal Medicine
DX: R62.7 Adult failure to thrive (principal); Z98.1 Arthrodesis status; D72.829 Elevated white blood cell count, unspecified; E11.40 Type 2 diabetes mellitus with diabetic neuropathy, unspecified; Z79.84 Long term (current) use of oral hypoglycemic drugs; Z20.822 Contact with and (suspected) exposure to COVID-19; Z68.33 Body mass index [BMI] 33.0-33.9, adult
CPT/HCPCS: 36415; 71045-TC; 80048-TC; 80061-TC; 81001; 82962-TC; 83735-TC; 84100-TC; 85025-TC; 87081-TC; 97110-TC; 97530-TC; A6403; G0378; J1170; J1650; J1815; J2270; J3490; J7030

== ENCOUNTER 2022-05-23 08:05 | Emergency (ER) | payer MEDICARE, OTHER ==
[~2022-05-23] VITALS: Ht 154.9 cm; Wt 74.8 kg
[~2022-05-23 08:05] MED LIST changes: +ALEN70TA80 PO; +BACL10TA PO; +CYCL10TA9 PO; +DIPH1TAB28 PO; +DULO60CA64 PO; -ENOX40DI SQ; +HYDR2TAB7 PO; +LUBI24CA5 PO; +META-25 PO; -MORP15TA7 PO; -NITR100C15 PO; +OMEP40CA21 PO; +OXYC10TA49 PO; +OXYC5TAB3 PO; +TAMS-12 PO; -TIZA-180 PO
[2022-05-23] MEDS ORDERED: ONDANSETRON HCL/PF 4 MG/2 ML VIAL IV ONE (09:00)
[2022-05-23] MEDS ORDERED: MORPHINE SULFATE INJ 2 MG/ML DISP.SYRIN IV ONE (09:00)
[2022-05-23] MEDS ORDERED: ONDANSETRON HCL/PF 4 MG/2 ML VIAL ONE (09:03)
[2022-05-23] MEDS ORDERED: MORPHINE SULFATE INJ 2 MG/ML DISP.SYRIN ONE (09:04)
[2022-05-23 09:08] LABS: BASOPHILS # (AUTO) 0.1 K/uL (0.0-0.2); BASOPHILS % (AUTO) 0.7 % (0.0-2.0); EOSINOPHILS % (AUTO) 3.7 % (0.0-6.0); HEMATOCRIT 36 % (33-45); HEMOGLOBIN 11.8 g/dL (11.5-14.8); LYMPHOCYTES # (AUTO) 1.5 K/uL (0.8-4.8); LYMPHOCYTES % (AUTO) 14.1 % (20.0-44.0); MEAN CORPUSCULAR HGB CONC 33 g/dl (31.0-36.0); MEAN CORPUSCULAR VOLUME 91 fL (82-100); MONOCYTES % (AUTO) 9.1 % (2.0-12.0); NEUTROPHILS # (AUTO) 7.6 K/uL (1.8-8.9); NEUTROPHILS % (AUTO) 72.4 % (43.0-81.0); PLATELET COUNT (AUTO) 406 K/uL (150-450); RED BLOOD CELL COUNT(AUTO) 3.97 MIL/uL (4.0-5.2); WHITE BLOOD COUNT (AUTO) 10.5 K/uL (4.3-11.0)
[2022-05-23 09:21] LABS: CALCIUM, SERUM 8.7 mg/dL (8.5-10.1); CREATININE 0.7 mg/dL (0.6-1.3); POTASSIUM 4.1 mmol/L (3.5-5.1)
[2022-05-23] MEDS ORDERED: VANCOMYCIN 1 GM in IV D5W 250 ML IV ONE (12:00)
[2022-05-23] MEDS ORDERED: PIPERACILLIN /TAZOBACTAM 3.375 G in IV D5W 50 ML IV ONE (12:00)
[2022-05-23 19:53] VITALS: BP 97/57
== END 2022-05-23 20:25 | disposition short-term general hospital (02) ==
LOC: ER 08:08
DX: M46.26 Osteomyelitis of vertebra, lumbar region (principal); G89.28 Other chronic postprocedural pain; M54.50 Low back pain, unspecified; I10 Essential (primary) hypertension; E11.9 Type 2 diabetes mellitus without complications; Z20.822 Contact with and (suspected) exposure to COVID-19; Z88.8 Allergy status to other drugs, medicaments and biological substances; Z60.2 Problems related to living alone; Z79.899 Other long term (current) drug therapy; W01.0XXA Fall on same level from slipping, tripping and stumbling without subsequent striking against object, initial encounter; Y93.01 Activity, walking, marching and hiking; Y92.89 Other specified places as the place of occurrence of the external cause; Y99.8 Other external cause status
CPT/HCPCS: 99285; 96365; 72131; 71045; 96375; 87426; 96368; 93005; 85025; 80048; 87040 ×2; 85652; 36415; 85730; 86850; 86140; J3370; J2405; J2543; J7060; J2270; A4223; C9803

== ENCOUNTER 2022-06-09 11:38 | Emergency (ER) | payer MEDICARE, OTHER ==
[~2022-06-09] VITALS: Ht 152.4 cm; Wt 79.4 kg
[~2022-06-09 11:38] MED LIST changes: -OXYC10TA49 PO
--- NOTE | 2022-06-09 12:00 | NUR ---
BIBA FOR FLANK PAIN. A/O X 3, ABLE TO MAKE NEEDS KNOWN, TOLERATING WELL ON ROOM AIR.
[2022-06-09] MEDS ORDERED: DEXAMETHASONE SOD PHOSPHATE 10 MG/ML VIAL IV ONE (12:30)
[2022-06-09] MEDS ORDERED: ONDANSETRON HCL/PF 4 MG/2 ML VIAL IV ONE (12:30)
[2022-06-09] MEDS ORDERED: MORPHINE SULFATE INJ 2 MG/ML DISP.SYRIN IV ONE (12:30)
[2022-06-09] MEDS ORDERED: MORPHINE SULFATE INJ 4 MG/ML DISP.SYRIN ONE ×2 (12:44→12:46)
[2022-06-09] MEDS ORDERED: ONDANSETRON HCL/PF 4 MG/2 ML VIAL ONE ×2 (12:44→12:45)
[2022-06-09] MEDS ORDERED: DEXAMETHASONE SOD PHOSPHATE 10 MG/ML VIAL ONE ×2 (12:44→12:45)
[2022-06-09 12:54] LABS: BASOPHILS # (AUTO) 0.1 K/uL (0.0-0.2); BASOPHILS % (AUTO) 0.3 % (0.0-2.0); EOSINOPHILS % (AUTO) 0.8 % (0.0-6.0); HEMATOCRIT 30 % (33-45); HEMOGLOBIN 9.7 g/dL (11.5-14.8); LYMPHOCYTES % (AUTO) 5.8 % (20.0-44.0); MEAN CORPUSCULAR HGB CONC 32 g/dl (31.0-36.0); MEAN CORPUSCULAR VOLUME 89 fL (82-100); MONOCYTES # (AUTO) 1.2 K/uL (0.1-1.30); MONOCYTES % (AUTO) 6.5 % (2.0-12.0); NEUTROPHILS # (AUTO) 15.5 K/uL (1.8-8.9); NEUTROPHILS % (AUTO) 86.6 % (43.0-81.0); PLATELET COUNT (AUTO) 413 K/uL (150-450); RED BLOOD CELL COUNT(AUTO) 3.36 MIL/uL (4.0-5.2)
[2022-06-09 13:15] LABS: CALCIUM, SERUM 8.1 mg/dL (8.5-10.1); CREATININE 1.2 mg/dL (0.6-1.3); POTASSIUM 4.6 mmol/L (3.5-5.1)
--- NOTE | 2022-06-09 13:18 | NUR ---
urine collected and sent to lab.
[2022-06-09 13:23] LABS: ALBUMIN 1.9 g/dL (3.4-5.0); BILIRUBIN,DIRECT 0.3 mg/dL (0.0-0.2); BILIRUBIN,TOTAL 0.7 mg/dL (0.2-1.0); TOTAL PROTEIN, SERUM 7.2 g/dL (6.4-8.2)
[2022-06-09 13:31] LABS: BILIRUBIN,URINE NEGATIVE (NEGATIVE); COLOR,URINE DARK YELLOW (YELLOW); LEUKOCYTE ESTERASE ,URINE 3+ (NEGATIVE); NITRITE, URINE POSITIVE (NEGATIVE); PROTEIN,URINE TRACE mg/dl (NEGATIVE); UGLUCOSE NEGATIVE (NEGATIVE)
[2022-06-09 13:33] LABS: BACTERIA,URINE Few /HPF (None Seen); SQUAMOUS EPITHELIAL CELL,UR Moderate /HPF (None Seen); WBC,URINE 21-50 /HPF (0-3)
--- NOTE | 2022-06-09 15:14 | NUR ---
covid antigen swab done and sent to the lab
--- NOTE | 2022-06-09 15:16 | NUR ---
MOVE SHEET SUBMITTED.
--- NOTE | 2022-06-09 15:19 | NUR ---
DR. BATES SPEAKING WITH DR. FELDMAN.
[2022-06-09] MEDS ORDERED: KETOROLAC TROMETHAMINE INJ 30 MG/ML VIAL IV ONE (15:30)
[2022-06-09] MEDS ORDERED: CEFTRIAXONE 1GM BAG (ER ONLY) 50 ML IV ONE ×2 (15:30→15:45)
[2022-06-09] MEDS ORDERED: KETOROLAC TROMETHAMINE INJ 30 MG/ML VIAL ONE (15:45)
--- NOTE | 2022-06-09 15:54 | NUR ---
ADDENDUM: Intravenous End Time Documentation: Rocephin 1 gram IVPB: start time: 1554 ; end time: 1624 IV site: [facility] PIV # 20 Port # 1
[2022-06-09] MEDS ORDERED: IBUP-1955 PO (16:23)
[2022-06-09] MEDS ORDERED: CEPH500C2 PO (16:23)
--- NOTE | 2022-06-09 17:30 | NUR ---
IV removed. Catheter intact and site benign. Pressure and 4x4 applied to site. No bleeding noted.
--- NOTE | 2022-06-09 17:37 | NUR ---
CALLED [facility] FOR TRANSPORT ETA 30-45 MINS.
--- NOTE | 2022-06-09 18:28 | NUR ---
Patient discharged to home in stable condition. Written and verbal after care instructions given. Patient verbalizes understanding of instruction.
--- NOTE | 2022-06-09 18:28 | NUR ---
Patient discharged from hospital via stretcher accompanied by 2 teacher education instructor. Stable at time of discharge.
[2022-06-09 18:29] VITALS: BP 107/68
== END 2022-06-09 18:29 | disposition home or self-care (01) ==
LOC: ER 11:44
DX: N39.0 Urinary tract infection, site not specified (principal); N20.0 Calculus of kidney; G89.29 Other chronic pain; M54.9 Dorsalgia, unspecified; R74.01 Elevation of levels of liver transaminase levels; D72.829 Elevated white blood cell count, unspecified; E11.65 Type 2 diabetes mellitus with hyperglycemia; I10 Essential (primary) hypertension; Z88.8 Allergy status to other drugs, medicaments and biological substances; Z60.2 Problems related to living alone; Z79.899 Other long term (current) drug therapy; Z20.822 Contact with and (suspected) exposure to COVID-19
CPT/HCPCS: 99285; 74176; 96365; 96375; 87426; 85025; 80048; 87040 ×2; 87086; 83690; 80076; 81001; 36415; J1100; J2270; J1885; J2405; J0696; C9803

== ENCOUNTER 2023-07-29 21:55 | Emergency (ER) | payer MEDICARE, MEDICAID ==
[~2023-07-29] VITALS: Ht 154.9 cm; Wt 65.8 kg
[~2023-07-29 21:55] MED LIST changes: +CEPH500C2 PO; +IBUP-1955 PO
[2023-07-29] MEDS ORDERED: ONDANSETRON HCL/PF 4 MG/2 ML VIAL ONE (23:55)
[2023-07-29] MEDS ORDERED: HYDROMORPHONE 1 MG/1 ML DISP.SYRIN ONE (23:57)
[2023-07-29] MEDS ORDERED: ONDANSETRON 4 MG TAB.RAPDIS ONE (23:57)
[2023-07-30] MEDS: ONDANSETRON 4 MG TAB.RAPDIS PO ONE (00:02)
[2023-07-30] MEDS: HYDROMORPHONE 1 MG/1 ML DISP.SYRIN IM ONE (00:02)
[2023-07-30 00:30] LABS: BASOPHILS # (AUTO) 0.1 K/uL (0.0-0.2); BASOPHILS % (AUTO) 0.8 % (0.0-2.0); EOSINOPHILS # (AUTO) 0.5 K/uL (0.0-0.7); EOSINOPHILS % (AUTO) 5.3 % (0.0-6.0); HEMATOCRIT 36 % (33-45); HEMOGLOBIN 11.9 g/dL (11.5-14.8); LYMPHOCYTES # (AUTO) 2.8 K/uL (0.8-4.8); LYMPHOCYTES % (AUTO) 29.8 % (20.0-44.0); MEAN CORPUSCULAR HEMOGLOBIN 31 PG (26.0-33.0); MEAN CORPUSCULAR HGB CONC 34 g/dl (31.0-36.0); MEAN CORPUSCULAR VOLUME 94 fL (82-100); MONOCYTES % (AUTO) 10.2 % (2.0-12.0); NEUTROPHILS # (AUTO) 5.1 K/uL (1.8-8.9); NEUTROPHILS % (AUTO) 53.9 % (43.0-81.0); PLATELET COUNT (AUTO) 306 K/uL (150-450); RED BLOOD CELL COUNT(AUTO) 3.79 MIL/uL (4.0-5.2); RED CELL DISTRIBUTION WIDTH 15.5 % (11.5-15.0); WHITE BLOOD COUNT (AUTO) 9.4 K/uL (4.3-11.0)
[2023-07-30 00:55] LABS: CALCIUM, SERUM 9.1 mg/dL (8.5-10.1); CREATININE 0.9 mg/dL (0.6-1.3); POTASSIUM 3.8 mmol/L (3.5-5.1)
[2023-07-30 01:04] LABS: BILIRUBIN,TOTAL 0.3 mg/dL (0.2-1.0); TOTAL PROTEIN, SERUM 7.9 g/dL (6.4-8.2)
[2023-07-30 02:10] VITALS: BP 167/93; TEMP 98.1; O2SAT 100
== END 2023-07-30 02:17 ==
LOC: ER 21:56
DX: E11.42 Type 2 diabetes mellitus with diabetic polyneuropathy (principal); I10 Essential (primary) hypertension; Z87.19 Personal history of other diseases of the digestive system; Z87.448 Personal history of other diseases of urinary system; Z86.59 Personal history of other mental and behavioral disorders; Z88.8 Allergy status to other drugs, medicaments and biological substances; Z60.2 Problems related to living alone
CPT/HCPCS: 99285; 93971; 73610; 73630; 85025; 36415; 80053; 96372; Q0162; J1170; J2405